=== PATIENT | male | born 1965 | race Caucasian/White ===

== ENCOUNTER → 2017-11-21 | Outpatient (CLI) | payer MEDICAID | LOC: FIMAGING 10:18 | PROVIDERS: ATTEND Neurological Surgery | DX: M50.01 Cervical disc disorder with myelopathy, high cervical region (principal) ==

== ENCOUNTER → 2018-09-18 | Outpatient (CLI) | payer OTHER, MEDICAID | LOC: FRFLAB 10:29 | PROVIDERS: ATTEND Physician Assistant | DX: M50.01 Cervical disc disorder with myelopathy, high cervical region (principal); Z98.1 Arthrodesis status ==